=== PATIENT | female | born 1960 | race Caucasian/White ===

== ENCOUNTER → 2020-11-07 10:37 | Outpatient (CLI) | payer OTHER, SELFPAY ==
--- NOTE | ~2020-11-07 | MM_ITS ---
EXAMINATION: MM screening [facility] BI w char HISTORY: Screening TECHNIQUE: Craniocaudal and mediolateral oblique 3-D tomosynthesis images were obtained and synthetic 2-D images were generated. CAD analysis was submitted and interpreted. COMPARISON: Comparison to multiple prior studies sequentially, with oldest reviewed study dated 11/28. BREAST PARENCHYMAL COMPOSITION: The breasts are heterogenously dense, which may obscure small masses. FINDINGS: There is no evidence of suspicious mass, calcification, or architectural distortion to sugg est malignancy in either breast. There has been no suspicious interval change. IMPRESSION: 1. No mammographic evidence of malignancy. 2. Recommend routine screening mammography in one year. BI-RADS Category 1: Negative Reviewed, dictated and finalized at location A. ING MANAGER
== END ==
DX: Z12.31 Encounter for screening mammogram for malignant neoplasm of breast (principal)
CPT/HCPCS: 77063; 77067

== ENCOUNTER → 2021-12-13 07:05 | Outpatient (CLI) | payer OTHER, SELFPAY ==
--- NOTE | ~2021-12-13 | MM_ITS ---
EXAMINATION: MM screening [facility] w char HISTORY: Screening mammogram, family history of breast cancer in her sister. TECHNIQUE: Craniocaudal and mediolateral oblique 3-D tomosynthesis images were obtained and synthetic 2-D images were generated. CAD analysis was submitted and interpreted. COMPARISON: 11/07/2020, 10/03/2019 BREAST PARENCHYMAL COMPOSITION: The breasts are heterogeneously dense, which may obscure small masses . FINDINGS: There is no evidence of suspicious mass, calcification, or architectural distortion to sugg est malignancy in either breast. There has been no suspicious interval change. IMPRESSION: 1. No mammographic evidence of malignancy. 2. Recommend routine screening mammography in one year. BI-RADS Category 1: Negative Reviewed, dictated and finalized at location A. L MAINTENANCE WORKER
== END ==
DX: Z12.31 Encounter for screening mammogram for malignant neoplasm of breast (principal)
CPT/HCPCS: 77063; 77067

== ENCOUNTER → 2023-02-21 17:06 | Outpatient (CLI) | payer OTHER, SELFPAY ==
--- NOTE | ~2023-02-21 | MM_ITS ---
EXAMINATION: MM screening [facility] BI w char HISTORY: Screening mammogram, family history of breast cancer in her sisters. TECHNIQUE: Craniocaudal and mediolateral oblique 3-D tomosynthesis images were obtained and synthetic 2-D images were generated. CAD analysis was submitted and interpreted. COMPARISON: 12/13/2021, 11/07/2020, 10/03/2019 BREAST PARENCHYMAL COMPOSITION: The breasts are heterogeneously dense, which may obscure small masses . FINDINGS: No suspicious mass, calcification, or architectural distortion are identified in either mannie ast to suggest malignancy. There has been no suspicious interval change. IMPRESSION: 1. No mammographic evidence of malignancy. 2. Recommend routine screening mammography in one year. BI-RADS Category 1: Negative Reviewed, dictated and finalized at location A.
== END ==
DX: Z12.31 Encounter for screening mammogram for malignant neoplasm of breast (principal)
CPT/HCPCS: 77063; 77067

== ENCOUNTER 2024-02-27 15:13 | Outpatient (CLI) | payer OTHER, SELFPAY ==
--- NOTE | ~2024-02-27 | MM_ITS ---
EXAMINATION: MM screening [facility] BI w char HISTORY: Screening mammogram TECHNIQUE: Craniocaudal and mediolateral oblique 3-D tomosynthesis images were obtained and synthetic 2-D images were generated. CAD analysis was submitted and interpreted. COMPARISON: 02/21/2023, 12/13/2021 bilateral screening mammogram examinations BREAST PARENCHYMAL COMPOSITION: The breasts are heterogeneously dense, which may obscure small masses . FINDINGS: There is no evidence of suspicious mass, calcification, or architectural distortion to sugg est malignancy in either breast. There has been no suspicious interval change. IMPRESSION: 1. No mammographic evidence of malignancy. 2. Recommend routine screening mammography in one year. BI-RADS Category 1: Negative Reviewed, dictated and finalized at location A.
== END 2024-02-27 15:14 ==
DX: Z12.31 Encounter for screening mammogram for malignant neoplasm of breast (principal)
CPT/HCPCS: 77063; 77067

== ENCOUNTER 2024-04-16 06:00 | Emergency (ER) | payer OTHER, SELFPAY ==
[2024-04-16] VITALS (12 sets, daily range): BP systolic 116–159; BP diastolic 62–84; PULSE 62–72; RESP 16–18; TEMP 36.3–36.8; O2SAT 97–99
[2024-04-16 06:18] LABS: Basophils Percent Auto 1.1 % (0.2-1.2); Eosinophils Absolute Auto 0.2 K/mm3 (0-0.3); Eosinophils Percent Auto 4.6 % (0-4.4); Hematocrit 39.2 % (37.0-47.0); Hemoglobin 13.1 g/dL (12.0-15.0); Immature Granulocyte Absolute 0.01 K/mm3 (0.00-0.031); Immature Granulocyte Percent A 0.3 % (0-0.5); Lymphocytes Percent Auto 31.3 % (18.3-44.2); Mean Corpuscular HGB Conc 33.4 g/dl (32-36); Mean Corpuscular Hemoglobin 31.8 pg (26-34); Mean Corpuscular Volume 95.1 fl (80-100); Mean Platelet Volume 10.5 fl (7.4-10.4); Monocytes Absolute Auto 0.5 K/mm3 (0.1-0.6); Monocytes Percent Auto 12.8 % (2.6-8.5); Neutrophils Absolute Auto 1.8 K/mm3 (1.3-6.7); Neutrophils Percent Auto 49.9 % (45.5-73.1); Platelet Count Result 234 k/mm3 (150-375); Red Blood Count 4.12 M/mm3 (4.2-5.4); Red Cell Distribution Width 12.4 % (11.5-14.5); White Blood Count 3.5 K/mm3 (4.5-10.0)
[2024-04-16 06:31] LABS: Alanine Aminotransferase 16 U/L (6-35); Albumin Level 4.5 g/dL (3.5-5.1); Alkaline Phosphatase 58 U/L (38-126); Anion Gap 6 mmol/L (4-12); Aspartate Amino Transferase 26 U/L (14-36); Bilirubin,Total 0.7 mg/dL (0.2-1.3); Blood Urea Nitrogen 17 mg/dL (7-17); Calcium 9.4 mg/dL (8.4-10.2); Carbon Dioxide 31 mmol/L (22-30); Chloride 106 mmol/L (98-107); Estimated CRCL calculation 43 ml/min; Estimated Glomerular Filt Rate 50; Glucose 101 mg/dL (65-110); Potassium 3.5 mmol/L (3.4-5.0); Sodium 143 mmol/L (137-145)
[2024-04-16 06:32] LABS: Prothrombin Time 13.4 Seconds (11.1-14.7)
--- NOTE | 2024-04-16 07:36 | ED.GENADULT ---
HPI - General Adult General Chief complaint: GI Bleed Stated complaint: possible GI bleed Time Seen by Provider: 04/16/24 06:58 History of Present Illness HPI narrative: this is a 63-year-old female presenting the chief complaint of rectal bleeding. Patient has chronic diarrhea. Over the last several days she has developed some abdominal bloating/discomfort and then her hemorrhoids have started to flare. Now she is having some bright red blood mixed in her stool. She has started suppositories for hemorrhoids. When she called her primary care physician she is instructed to come to the ED for evaluation. Other than the chronic diarrhea the patient feels well and does not any weakness dizziness chest pain difficulty breathing or lightheadedness. Patient is not on blood thinners. Patient is has a history of colon cancer treated with bowel resection. She is up-to-date on her colonoscopies. She is unsure if they saw diverticulosis on her last colonoscopy. Related Data Allergies Allergy/AdvReac Type Severity Reaction Status Date / Time iohexol AdvReac Sneezing Verified 04/16/24 06:01 [From contrast - CT, X-RAY] [facility] Family History Family History (Updated 07/03/15 @ 14:19 by DOCTOR UNKNOWN) Sibling Family history of heart disease in male family member before age 55 Father Acute myocardial infarction Social History Social History Smoking status: Never smoker Alcohol intake: current Exam Narrative: APPEARANCE: No apparent distress. A&O x4 pleasant polite Head: atraumatic. EYES: EOMI, NOSE: Atraumatic NECK: Trachea midline RESPIRATORY: No increased rate of breathing CARDIOVASCULAR: RRR, ABDOMINAL: Non-distended soft nontender digital rectal exam showed brown blood in the rectal vault. Hemorrhoids present. skin tags present. MUSCULOSKELETAl: No obvious deformities NEURO: Alert. Moving 4/4 extremities SKIN:: Warm, dry. Normal color PSYCHIATRIC: Normal affect Course Vital Signs Vital signs: Vital Signs Temperature 98 F 04/16/24 06:06 Pulse Rate 70 04/16/24 06:06 Respiratory Rate 17 04/16/24 06:06 Blood Pressure 159/84 H 04/16/24 06:06 Pulse Oximetry 99 04/16/24 06:06 Oxygen Delivery Room Air 04/16/24 06:06 Temperature 97.3 F L 04/16/24 08:00 Pulse Rate 67 04/16/24 09:00 Respiratory Rate 16 07/02/24 09:00 Blood Pressure 128/73 04/16/24 09:00 Pulse Oximetry 97 04/16/24 09:00 Oxygen Delivery Room Air 04/16/24 06:06 Medical Decision Making [facility] Narrative Medical decision making narrative: -Course: 63-year-old female presenting with mild bright red rectal bleeding. No blood on my exam. Patient has chronic diarrhea which appears to fluid flared her hemorrhoids which is likely what is causing her bleed. Initial hemoglobin was 13. Repeate was 12.0 after 2 L of NS which is consistent with dilution. Patient has a GI doctor she can follow-up with. Given return precautions. -DDX includes but is not limited to: Hemorrhoid bleed, diverticular bleed, brisk upper GI bleed, lower GI bleed -Co-morbidities complicating care: history of colon cancer, hypertension, hypothyroid- -Independent interpretation of studies: labs reviewed hemoglobin 13.1 -Interventions: 2 L normal saline, Pepcid -Shared decision making / Disposition: discharged Vital Signs Vital Signs: Vital Signs Temperature 98 F 04/16/24 06:06 Pulse Rate 70 04/16/24 06:06 Respiratory Rate 17 04/16/24 06:06 Blood Pressure 159/84 H 04/16/24 06:06 Pulse Oximetry 99 04/16/24 06:06 Oxygen Delivery Room Air 04/16/24 06:06 Temperature 97.3 F L 04/16/24 08:00 Pulse Rate 67 04/16/24 09:00 Respiratory Rate 16 04/16/24 09:00 Blood Pressure 128/73 04/16/24 09:00 Pulse Oximetry 97 04/16/24 09:00 Oxygen Delivery Room Air 04/16/24 06:06 Lab Data 04/16/24 09:37 04/16/24 06:12 Labs: Lab Results 04/16/24
[2024-04-16] MEDS: SODIUM CHLORIDE 0.9% IV 2,000 ML 999 ML IV CONT (07:40)
[2024-04-16] MEDS: FAMOTIDINE 20 MG/2 ML VIAL IV PUSH (07:41)
[2024-04-16 09:49] LABS: Hematocrit 36.6 % (37.0-47.0)
== END 2024-04-16 10:10 | disposition home or self-care (01) ==
PROVIDERS: Student in an Organized Health Care Education/Training Program; Emergency Provider Emergency Medicine; PCP Internal Medicine
DX: K64.9 Unspecified hemorrhoids (principal); Z90.49 Acquired absence of other specified parts of digestive tract; Z85.038 Personal history of other malignant neoplasm of large intestine
CPT/HCPCS: 36415; 80053; 85014; 85018; 85025; 85610; 85730; 86850; 86900; 86901; 96361; 96374; 99284; J7030

== ENCOUNTER 2025-08-05 14:43 | Outpatient (CLI) | payer OTHER, SELFPAY ==
--- NOTE | ~2025-08-05 | MM_ITS ---
EXAMINATION: MM screening [facility] BI w char HISTORY: Screening TECHNIQUE: Craniocaudal and mediolateral oblique 3-D tomosynthesis images were obtained and synthetic 2-D images were generated. CAD analysis was submitted and interpreted. COMPARISON: Comparison to multiple prior studies sequentially, with oldest reviewed study dated , 10/03/2019 BREAST PARENCHYMAL COMPOSITION: The breasts are heterogeneously dense, which may obscure small masses. FINDINGS: There is no evidence of suspicious mass, calcification, or architectural distortion to suggest malignancy in either breast. IMPRESSION: 1. No mammographic evidence of malignancy. 2. Recommend routine screening mammography in one year. BI-RADS Category 1: Negative Reviewed, dictated and finalized at location B.
== END 2025-08-05 14:44 | disposition home or self-care (01) ==
LOC: MICIMG 14:43
PROVIDERS: PCP Obstetrics & Gynecology; Visit Provider Internal Medicine
DX: Z12.31 Encounter for screening mammogram for malignant neoplasm of breast (principal)
CPT/HCPCS: 77063; 77067